=== PATIENT | female | born 1945 | race Caucasian/White ===

== ENCOUNTER 2024-01-12 07:20 | Outpatient (CLI) | payer MEDICARE, BC ==
[~2024-01-12] VITALS: Ht 160 cm; Wt 53.1 kg
[2024-01-12 07:48] LABS: TOTAL HEMOGLOBIN 12.9 G/dl (12.0-16.0)
[2024-01-12] MEDS: albuterol 2.5 MG/3 ML nebule NEB ONE (08:34)
[2024-01-12 08:39] VITALS: PULSE 61; RESP 16; O2SAT 97
[2024-01-12 08:50] VITALS: PULSE 61; RESP 16
== END 2024-01-12 23:59 | disposition home or self-care (01) ==
LOC: RT 07:20
PROVIDERS: ATTEND Internal Medicine Cardiovascular Disease
DX: R06.02 Shortness of breath (principal); J44.9 Chronic obstructive pulmonary disease, unspecified
CPT/HCPCS: 85018; 94060; 94727; 94729; 94760; A6258; Z7610